=== PATIENT | female | born 1990 | race Caucasian/White ===

== ENCOUNTER → 2017-08-04 18:00 | Outpatient (CLI) | payer SELFPAY ==
[~2017-08-04 18:00] MED LIST: IBUPROFEN600 MG PO; MEPERIDINE HCL50 MG PO; PRENATAL COMPLE1 TAB PO
[2017-08-04 18:42] LABS: APPEARANCE CLEAR (CLEAR); BILIRUBIN NEGATIVE (NEGATIVE); COLOR YELLOW (YELLOW); GLUCOSE NEGATIVE (NEGATIVE); KETONE NEGATIVE (NEGATIVE); NITRITE NEGATIVE (NEGATIVE); PH 6.5 (5.0-6.0); PROTEIN NEGATIVE (NEGATIVE); UROBILINOGEN NORMAL (NORMAL)
[2017-08-07 08:15] VITALS: BMI 32.4
== END | disposition home or self-care (01) ==
LOC: D.LDO 18:00
PROVIDERS: Obstetrics & Gynecology
DX: O26.893 Other specified pregnancy related conditions, third trimester (principal); Z3A.39 39 weeks gestation of pregnancy

== ENCOUNTER 2017-08-07 07:46 | Inpatient (IN) | payer MEDICAID ==
[2017-08-07] VITALS (14 sets, daily range): BP systolic 90–131; BP diastolic 38–91; BMI 32.4
[2017-08-07] MEDS ORDERED: PRENATAL COMPLE1 TAB PO (07:47)
[2017-08-07 08:56] LABS: HEMATOCRIT 36.1 % (36.0-48.0); HEMOGLOBIN 12.3 g/dL (12-16); MCH 33.3 pg (26.0-34.0); MCHC 34.1 g/dL (31.0-37.0); MCV 97.8 fL (80.0-100.0); MEAN PLATELET VOLUME 10.9 fL (7.4-10.4); RBC 3.69 10x6/uL (4.00-5.40); RDW 13.8 % (11.5-14.5); WBC 12.5 10x3/uL (4.8-10.8)
--- NOTE | 2017-08-07 13:00 | NUR ---
PT IS RECEIVED FROM RECOVERY. SHE IS DOING WELL. SHE IS AWAKE AND ALERT. LUNGS- CLEAR. HEART- RRR. ABD SOFT WITH TENDERNESS WITH BIKINI LINE INCISION. BS- EXT MINIMAL EDEMA. IV PATENT LEFT HAND HOFFMANN INTACT AND SECURED TO R THIGH. BED IS LOW, SIDE RAILS UP X 2 AND CALL LIGHT IN REACH.
--- NOTE | 2017-08-07 14:00 | NUR ---
PTS FAMILY IS HERE VISITING. NO COMPLAINTS. GOOD URINE OUTPUT IN HOFFMANN. IV PATENT.
--- NOTE | 2017-08-07 14:59 | NUR ---
PT REQUEST TO BE PULLED UP IN BED. SHE IS DOING WELL. MOD LOCIA. FUNDUS FIRM U-1
--- NOTE | 2017-08-07 17:05 | NUR ---
PT IS RESTING IN BED. OFFERS NO COMPLAINTS. FOB AT BEDSIDE.
--- NOTE | 2017-08-07 18:03 | NUR ---
PT STATES PAIN MED WHEN INFUSING RAYMUNDO AT TIME. NO REDNESS NOTED AT SITE OR TENDERNESS.
--- NOTE | 2017-08-07 19:10 | NUR ---
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
--- NOTE | 2017-08-07 20:10 | NUR ---
ASSESSMENT PER FLOW SHEET, VS OBTAINED, IV IN LEFT HAND INTACT WITH NO REDNESS OR EDEMA, PT REPORTS IT ONLY HURTS WHEN SHE USES THE ASSEMBLER GOLD FRAME BUTTON, INFORMED PT THAT I CAN STOP THE ASSEMBLER GOLD FRAME AND ADM DEMEROL PO, INFORMED PT THAT ONCE ASSEMBLER GOLD FRAME IS DISCONTINUED, THAT IT CANNOT BE STARTED BACK, PT STATES "WELL, I'M NOT REALLY SURE THEN, LET ME THINK ABOUT IT", ADM TORADOL SIVP PER MD ORDERS, SEE EMAR, FF, ML, U/U, MOD BLEEDING WITH 1 QUARTER SIZE CLOT NOTED ON LUBA PAD, LUBA CARE DONE WITH WET WARM WASH CLOTHS, BLUE CHUX, PINK PAD AND LUBA PAD CHANGED, [employer] WITH STERI STRIPS, CDI WITH NO DRAINAGE NOTED, FRESH ICE PACK TO ABD, HOFFMANN CATH INTACT DRAINING CLEAR YELLOW URINE, SCD'S ON AND WORKING PROPERLY, PT INST TO PUSH ASSEMBLER GOLD FRAME BUTTON FOR LUBA CARE WHILE ROLLING BACK AND FORTH TO CHANGE CHUXS AND PINK PAD, PT HESISTANT ABOUT PUSHING BUTTON, PT DECIDES TO GO AHEAD AND TAKE THE PO PAIN MED, ASSEMBLER GOLD FRAME DISCONTINUED, WILL ADM DEMEROL PO
--- NOTE | 2017-08-07 20:29 | NUR ---
ADM DEMEROL PO PER MD ORDERS, SEE EMAR, PT DENIES FURTHER NEEDS
--- NOTE | 2017-08-07 21:00 | NUR ---
PT RESTING, [employer] INC PAIN 03/13, STATES "IT DOES FEEL BETTER", PT DENIES NEEDS AT THIS TIME
--- NOTE | 2017-08-07 22:09 | NUR ---
PT AWAKE, NEW BAG OF NS WITH PITOCIN HUNG IV PER MD ORDERS, SEE EMAR, PT RATES INC PAIN AND CRAMPING 01/11, STATES "I FEEL SO MUCH BETTER", DENIES NEEDS AT THIS TIME, BEDDING PROVIDED TO FOB, BABY IN OPEN CRIB CART BY BEDSIDE, TRASH REMOVED
[2017-08-08 00:32] VITALS: BP 95/50
--- NOTE | 2017-08-08 00:32 | NUR ---
PT AWAKE, VS OBTAINED, HOFFMANN CATH EMPTIED, FRESH ICE PACK TO ABD, SCANT VAG BLEEDING NOTED, ADM DEMEROL PO PER MD ORDERS, SEE EMAR, PT REPOSITIONED TO RIGHT SIDE WITH PILLOW UNDER ABD AND BEHIND BACK FOR COMFORT AND SUPPORT, PT DENIES FURTHER NEEDS, FOB AT BEDSIDE
--- NOTE | 2017-08-08 02:00 | NUR ---
PT RESTING WITH EYES CLOSED, RESP QUIET, NO DISTRESS NOTED, LEFT UNDISTURBED AT THIS TIME, FOB ASLEEP IN RECLINER
--- NOTE | 2017-08-08 02:38 | NUR ---
PT RESTING WITH EYES CLOSED, AROUSES TO SOFT VERBAL STIMULATION, BABY TO ROOM VIA OPEN CRIB CART PER THIS RN, BANDS CHECKED, PT DENIES NEEDS OR PAIN AT THIS TIME, FOB AT AWAKENED AT THIS TIME
[2017-08-08 04:25] VITALS: BP 98/56
--- NOTE | 2017-08-08 04:25 | NUR ---
PT AWAKE, VS OBTAINED, I&O'S COLLECTED, INFORMED PT THAT I WILL TAKE OUT HOFFMANN AND SALINE LOCK IV SHORTLY, PT VERBALIZES UNDERSTANDING, REQUESTS PAIN MED AT THAT TIME
--- NOTE | 2017-08-08 04:59 | NUR ---
ADM DEMEROL PO PER MD ORDERS, SEE EMAR, IV CONVERTED TO SALINE LOCK, FLUSHED WITH 10MLS OF NS WITH NO DIFFICULTY, HOFFMANN CATH REMOVED, TIP INTACT, PT [place] WELL, STATES "OH, IT WASN'T THAT BAD", PT REQUESTED AND PROVIDED FRESH ICE PACK, DENIES FURTHER NEEDS, FOB AT BEDSIDE
--- NOTE | 2017-08-08 05:51 | NUR ---
PT RESTING WITH EYES CLOSED, RESP QUIET, NO DISTRESS NOTED, LEFT UNDISTURBED AT THIS TIME, FOB ASLEEP IN RECLINER
[2017-08-08 06:11] LABS: HEMATOCRIT 31.9 % (36.0-48.0); HEMOGLOBIN 10.8 g/dL (12-16); MCH 33.3 pg (26.0-34.0); MCHC 33.9 g/dL (31.0-37.0); MCV 98.5 fL (80.0-100.0); MEAN PLATELET VOLUME 10.7 fL (7.4-10.4); RBC 3.24 10x6/uL (4.00-5.40); RDW 13.9 % (11.5-14.5); WBC 14.4 10x3/uL (4.8-10.8)
[2017-08-08 07:29] LABS: RAPID PLASMA REAGIN Non Reactive (Non Reactive)
[2017-08-08 07:30] VITALS: BP 104/55
--- NOTE | 2017-08-08 07:30 | NUR ---
PT WAS RECEIVED THIS AM LYING IN BED. SHE OFFERS NO COMPLAINTS. SHE HAS A SALINE LOCK LEFT HAND WHICH IS PATENT. HOFFMANN CATH IS OUT AND SHE HAS VOIDE X 2. GEN- AWAKW AND ALERT. LUNGS- CLEAR. HEART-RRR. ABD- SOFT WITH TENDERNESS NOTE, BS+, BIKINI LINE INCISION WITH STERI STRIPS NOTED. EXT- NO EDEMA NOTED. BED IS LOW, SIDE RAILS UP X 2 AND CALL LIGHT IN REACH.
--- NOTE | 2017-08-08 10:22 | NUR ---
Janeth Madeline 08/08/17 LE@ 9:15 S: Patient states is going good. O: Patient sitting up in bed watching television, in nursery. Praised for and congratulated on delivery. does take time and patience in the beginning. It's important to feed on demand when showing feeding cues. Explained feeding cues, benefits of skin to skin, and breast milk composition. It is normal for infant to want to feed every 2-3 hours during the day and 3-4 hours at night. Feeding infant on demand will help with establishing your milk supply. Supply and demand what takes out your body will make more of. Showed patient different positions on how to hold infant for feedings. Provided and explained handouts on feeding cues, positions for , waking a sleeping baby, engorgement, hand expression, what to expect the first week, and breast milk composition. Patient asked, " Can you come in the room for next feeding and make sure he is latching correctly?" Sure, just call nursery and ask for cLC. Patient verbally agrees. A: Patient asked for CLC to come into room following for next feeding to verify latching. P: Continue to promote exclusively TOM Lorenzo
--- NOTE | 2017-08-08 11:00 | NUR ---
PT IS SITTING UP IN CHAIR. OFFERS NO COMPLAINTS.
--- NOTE | 2017-08-08 12:18 | NUR ---
PT TOOK SHOWER. TOLERATED WELL. INSTRUCTED ON INCISION CARE. LINENS CHANGED.
--- NOTE | 2017-08-08 17:40 | NUR ---
PT IS SITTING UP IN BED EATING DINNER. SHE REQUESTED PAIN MED. DEMEROL 100 MG GIVEN PO.
--- NOTE | 2017-08-08 19:15 | NUR ---
PM ROUNDS MADE, PT RESTING IN BED, BABY AND FOB AT BEDSIDE, INFORMED PT THAT I WILL BE BACK SHORTLY TO DO ASSESSMENT, PT VERBALIZES UNDERSTANDING, DENIES NEEDS AT THIS TIME
[2017-08-08 20:20] VITALS: BP 97/57
--- NOTE | 2017-08-08 20:20 | NUR ---
ASSESSMENT PER FLOW SHEET, VS OBTAINED, SALINE LOCK IN LEFT HAND INTACT WITH NO REDNESS OR EDEMA, PT REPORTS SALINE LOCK "FEELING A LITTLE SORE", PT REQUESTS IT TO BE REMOVED, INFORMED PT THAT I WILL CHECK LABS AND MAKE SURE I CAN REMOVE IT, PT VERBALIZES UNDERSTANDING, FF, ML, U/1, PT REPORTS LITE BLEEDING WITH NO CLOTS, [employer] INC WITH STERI STRIPS CDI WITH NO DRAINAGE NOTED, LUBA PAD PLACED OVER INC FOR COMFORT AND MOISTURE CONTROL, PT DENIES FLATUS, NO BM AND VOIDING BY SELF WITH NO DIFFICULTY, PT DENIES NEEDS OR PAIN AT THIS TIME, FOB AND BABY AT BEDSIDE
--- NOTE | 2017-08-08 21:33 | NUR ---
PT GETTING READY TO CHANGE BABIES DIAPER, C/O INC PAIN, ADM DEMEROL PO PER MD ORDERS, SEE EMAR, PT REQUESTED AND PROVIDED LUBA PADS, DENIES FURTHER NEEDS
--- NOTE | 2017-08-08 22:05 | NUR ---
FOB AT DIRECTOR BUSINESS, INQUIRES ABOUT THE IV, THIS RN TO ROOM, PT C/O SALINE LOCK, SALINE LOCK REMOVED, TIP INTACT, PRESSURE HELD, BANDAID APPLIED, PT DENIES FURTHER NEEDS OR PAIN AT THIS TIME
[2017-08-09 00:23] VITALS: BP 104/51
--- NOTE | 2017-08-09 00:23 | NUR ---
PT AWAKE, VS OBTAINED, PT DENIES NEEDS OR PAIN, FOB AT BEDSIDE
--- NOTE | 2017-08-09 00:53 | NUR ---
BABY TO ROOM VIA OPEN CRIB CART PER THIS RN, BANDS CHECKED, PT DENIES NEEDS, FOB AT BEDSIDE
--- NOTE | 2017-08-09 02:30 | NUR ---
BABY TO NSY VIA OPEN CRIB CART PER FOB, PT GETTING UP TO BR, NO NEEDS VOICED AT THIS TIME
[2017-08-09 04:41] VITALS: BP 96/51
--- NOTE | 2017-08-09 04:41 | NUR ---
PT RESTING WITH EYES CLOSED, AROUSES TO SOFT VERBAL STIMUALTION, VS OBTAINED, C/O INC PAIN, PT INFORMED ABOUT PAIN LEVEL OF 3 AND JUST TAKING 1 TABLET, PT STATES "NO, I WOULD RATHER TAKE 2 BECAUSE I WILL BE GETTING UP TO WALK AROUND", ADM DEMEROL 100 MG PO PER MD ORDERS, SEE EMAR, PT DENIES FURTHER NEEDS, FOB AT BEDSIDE
--- NOTE | 2017-08-09 04:46 | NUR ---
BABY TO ROOM VIA OPEN CRIB CART PER THIS RN, BANDS CHECKED
--- NOTE | 2017-08-09 06:10 | NUR ---
PT AWAKE, STATES "I FEEL SO MUCH BETTER NOW", DENIES NEEDS AT THIS TIME
--- NOTE | 2017-08-09 06:21 | NUR ---
PT AMB IN [place], GAIT STEADY, FOB PUSHING BABY IN OPEN CRIB CART, HEADING TO THE Y
--- NOTE | 2017-08-09 06:51 | NUR ---
PT BACK TO ROOM, DENIES NEEDS AT THIS TIME
[2017-08-09 07:30] VITALS: BP 113/37
--- NOTE | 2017-08-09 07:45 | NUR ---
PT IS RECEIVED LYING IN BED THIS AM. FOB AT BEDSIDE. SHE STATES THAT SHE IS FEELING BETTER TODAY. HER PAIN IS ABOUT A 4. GEN- AWAKE AND ALERT. LUNGS- CLEAR. HEART- RRR. ABD SOFT, TENDER. INCISION CLEAN AND DRY. SMALL LOCIA RUBRA. EXT- MINIMAL EDEMA. BED IS LO. SIDE RAILS UP X 2 AND CALL LIGHT IN REACH. VSS.
--- NOTE | 2017-08-09 09:43 | NUR ---
Janeth Longamelia 08/09/17 LE@ 8:15 S: Patient states, " is going good, things have gotten better with his latch. I am making sure he is opening his mouth wider verses latching on only to my nipple. I feel good. O: Patient in bed watching television, in nursery, praised patient for . Encouraged to continue to feed on demand, she is doing a great job. Asked if she had any questions or concerns, patient states, "No". Thanked CLC for helping with , provided work cell number, please call as needed. Provided and explained handouts on what to expect the first week, diaper count, how to prevent engorgement, and feeding cues. A: Patient appears confident with . P: Continue to feed infant on demand. Chidi Randle, TOM
[2017-08-09] MEDS ORDERED: MEPERIDINE HCL50 MG PO (10:03)
[2017-08-09] MEDS ORDERED: IBUPROFEN600 MG PO (10:03)
--- NOTE | 2017-08-09 10:08 | NUR ---
PT REQUESTED PAIN MED. PAIN IS ABOUT A 5. PAIN MED GIVEN.
--- NOTE | 2017-08-09 14:35 | NUR ---
flu vaccine and tdap given today
== END 2017-08-09 15:15 | disposition home or self-care (01) | DRG 765 ==
LOC: D.LD 07:46 → D.WS 07:46 → D.LD 13:13 → D.WS 17:13
PROVIDERS: ADMIT Obstetrics & Gynecology
PROC: 10D00Z1 Extraction of Products of Conception, Low, Open Approach (ICD-10-PCS; principal; 2017-08-07 09:00)
DX: O34.211 Maternal care for low transverse scar from previous cesarean delivery (principal); O36.0930 Maternal care for other rhesus isoimmunization, third trimester, not applicable or unspecified; O69.81X0 Labor and delivery complicated by cord around neck, without compression, not applicable or unspecified; O99.334 Smoking (tobacco) complicating childbirth; O48.0 Post-term pregnancy; Z3A.40 40 weeks gestation of pregnancy; Z37.0 Single live birth